=== PATIENT | male | born 1995 | race African-American/Black ===

== ENCOUNTER → 2016-12-03 | Outpatient (CLI) | payer OTHER ==
--- NOTE | 2016-12-03 13:46 | REP ---
WHOLE BODY RADIONUCLIDE BONE SCAN: HISTORY: Chronic left hip pain. No comparison radiographs. TECHNIQUE: 21.9 mCi technetium 99m MDP is injected and standard whole body bone scan imaging was acquired. SCINTIGRAPHIC FINDINGS: There is a normal distribution of skeletal tracer with uptake in bilateral kidneys and in the urinary bladder. Hip uptake is normal and symmetric. No increased uptake focus is seen within the pelvis or in either femur. No abnormal spine uptake is seen. IMPRESSION: Negative whole body bone scan. Signed by Marciano Lopez MD 12/03/2016 02:25 P
== END ==
LOC: M RAD 09:47
PROVIDERS: ATTEND Orthopaedic Surgery
DX: M25.552 Pain in left hip (principal); G89.29 Other chronic pain